=== PATIENT | female | born 1965 | race Caucasian/White ===

== ENCOUNTER → 2017-11-06 | Outpatient (CLI) | payer OTHER, SELFPAY ==
[~2017-11-06] MED LIST: ALBU90OI61 INH; Advil200 M1 PO; CITA20 PO; HYDR1TAB94; LEVSOD50 PO; OMEP20ER PO; OMEP40CA12 PO; OXYB5 PO; SOMA350 MG PO; TOLT4 PO
== END | disposition home or self-care (01) ==
LOC: OLS 16:40 → LAB SHORT 16:40
PROVIDERS: Nurse Practitioner Women's Health
DX: Z12.4 Encounter for screening for malignant neoplasm of cervix (principal); Z91.89 Other specified personal risk factors, not elsewhere classified
CPT/HCPCS: 87624; G0123

== ENCOUNTER 2018-07-29 07:04 | Day surgery (SDC) | payer OTHER ==
[~2018-07-29] VITALS: Ht 162.6 cm; Wt 108.0 kg
[~2018-07-29 07:04] MED LIST changes: +Omeprazole20 M1 PO; +PROGESTERONE200 MG PO; +SYNTHROID25 MCG PO
[2018-07-29] MEDS ORDERED: IBUP400 (08:19)
--- NOTE | 2018-07-29 08:26 | NUR ---
07/29/18 0826 Kendy Slater 1ST TWO IV ATTEMPTS BY RN'S WOULD NOT THREAD. THIRD IV ATTEMPT BY RN WAS A SUCCESSFUL START. PT TOLERATED PROCEDURE WITHOUT DIFFICULTY/
== END 2018-07-29 09:41 | disposition home or self-care (01) ==
LOC: ORSCSDS 07:04
PROVIDERS: Internal Medicine Gastroenterology
PROC: 0DJD8ZZ Inspection of Lower Intestinal Tract, Via Natural or Artificial Opening Endoscopic (ICD-10-PCS; principal; 2018-07-29 08:30)
DX: R19.4 Change in bowel habit (principal); K57.30 Diverticulosis of large intestine without perforation or abscess without bleeding; Z86.010 Personal history of colon polyps; Z80.0 Family history of malignant neoplasm of digestive organs; K21.9 Gastro-esophageal reflux disease without esophagitis; E03.9 Hypothyroidism, unspecified; E66.01 Morbid (severe) obesity due to excess calories; Z68.41 Body mass index [BMI] 40.0-44.9, adult; Z79.899 Other long term (current) drug therapy
CPT/HCPCS: J2250; J2405; J7120

== ENCOUNTER → 2018-12-24 | Outpatient (CLI) | payer OTHER ==
[~2018-12-24] MED LIST changes: +IBUP400
[2018-12-24 12:11] LABS: Source, Urine Catheter
[2018-12-24 12:27] LABS: Bilirubin, Urine Neg (Neg); Blood, Urine 1+ (Neg); Glucose Qualitative, Urine Neg (Neg); Ketones, Urine Neg (Neg); Leukocyte Esterase, Urine Neg (Neg); Nitrite, Urine Neg (Neg); Protein, Urine Neg (Neg); Specific Gravity, Urine 1.025 (1.003-1.022); Urobilinogen, Urine NORM (Normal)
[2018-12-24 12:34] LABS: Appearance, Urine Clear (Clear); Color, Urine Yellow (P-Yellow)
[2018-12-24 12:35] LABS: Bacteria Few /hpf; Squamous Epithelial Cells Few /hpf (Few); White Blood Cells, Urine 0-2 /hpf (0-5)
[2018-12-25 16:06] LABS: HPV 16 Negative (Negative); HPV 18 Negative (Negative); HPV OTHER HR TYPES Negative (Negative)
== END | disposition home or self-care (01) ==
LOC: LAB 12:09 → LAB SHORT 12:09
PROVIDERS: Nurse Practitioner Women's Health
DX: Z12.4 Encounter for screening for malignant neoplasm of cervix (principal); R39.89 Other symptoms and signs involving the genitourinary system; Z91.89 Other specified personal risk factors, not elsewhere classified
CPT/HCPCS: 81001; 87624; G0123

== ENCOUNTER → 2019-03-27 | Outpatient (CLI) | payer OTHER | END | disposition home or self-care (01) | LOC: PLD 13:43 → LAB SHORT 13:43 | DX: Q51.828 Other congenital malformations of cervix (principal); N85.00 Endometrial hyperplasia, unspecified; N95.0 Postmenopausal bleeding | CPT/HCPCS: 88305 ==

== ENCOUNTER → 2020-01-27 | Outpatient (CLI) | payer OTHER ==
[2020-01-27 16:56] LABS: BASOPHILS ABSOLUTE AUTO 0.04 K/mm3 (0.00-0.23); BASOPHILS PERCENT AUTO 1 % (0-2); EOSINOPHILS ABSOLUTE AUTO 0.12 K/mm3 (0.00-0.68); EOSINOPHILS PERCENT AUTO 2 % (0-6); Hematocrit 36.2 % (33.0-51.0); Hemoglobin 11.7 g/dL (11.5-16.0); IMMATURE GRAN ABSOLUTE AUTO 0.01 K/mm3 (0.00-0.10); IMMATURE GRAN PERCENT AUTO 0 % (0-1); LYMPHOCYTES ABSOLUTE AUTO 2.09 K/mm3 (0.84-5.20); LYMPHOCYTES PERCENT AUTO 34 % (21-46); MONOCYTES ABSOLUTE AUTO 0.38 K/mm3 (0.16-1.47); MONOCYTES PERCENT AUTO 6 % (4-13); Mean Corpuscular HGB 28.4 pg (26.0-34.0); Mean Corpuscular HGB Conc 32.3 g/dL (31.5-36.5); Mean Corpuscular Volume 88 fL (80-100); Mean Platelet Volume 9.2 fL (9.1-12.4); NEUTROPHILS ABSOLUTE AUTO 3.59 K/mm3 (1.96-9.15); NEUTROPHILS PERCENT AUTO 58 % (41-73); Platelet Count 305 K/mm3 (150-400); RDW Standard Deviation 41.3 fL (35.1-46.3); Red Blood Cell Count 4.12 M/mm3 (3.80-5.20); White Blood Cell Count 6.23 K/mm3 (4.00-11.30)
[2020-01-27 17:05] LABS: Albumin, Blood 3.6 g/dL (3.4-5.0); Albumin/Globulin Ratio 0.9 (0.8-1.8); Bilirubin, Total 0.5 mg/dL (0.1-1.0); Bun/Creatinine Ratio 14.7 (12.0-20.0); Calcium, Blood 8.8 mg/dL (8.5-10.1); Creatinine, Blood 1.02 mg/dL (0.40-1.00); Globulin, Blood 3.8 g/dL (2.2-4.0); Potassium, Blood 4.2 mmol/L (3.5-5.5); Total Protein, Blood 7.4 g/dL (6.4-8.2)
== END | disposition home or self-care (01) ==
LOC: LAB SHORT 16:51
PROVIDERS: Physician Assistant Medical
DX: R10.11 Right upper quadrant pain (principal)
CPT/HCPCS: 80053; 83690; 85025

== ENCOUNTER → 2020-05-15 | Outpatient (CLI) | payer OTHER | LOC: LAB SHORT 12:00 | DX: J06.9 Acute upper respiratory infection, unspecified (principal); J02.9 Acute pharyngitis, unspecified | CPT/HCPCS: 87081 ==

== ENCOUNTER 2021-05-11 13:15 | Emergency (ER) | payer OTHER ==
[~2021-05-11] VITALS: Ht 162.6 cm; Wt 111.1 kg
== END 2021-05-11 16:32 | disposition home or self-care (01) ==
LOC: ER 13:15
DX: S93.601A Unspecified sprain of right foot, initial encounter (principal); S80.11XA Contusion of right lower leg, initial encounter; W20.8XXA Other cause of strike by thrown, projected or falling object, initial encounter
CPT/HCPCS: 73610; 73630; 96372; 99283-25; J1885

== ENCOUNTER → 2022-09-12 | Outpatient (CLI) | payer OTHER ==
[2022-09-12 18:03] LABS: BASOPHILS ABSOLUTE AUTO 0.06 K/mm3 (0.00-0.23); BASOPHILS PERCENT AUTO 0 % (0-2); EOSINOPHILS ABSOLUTE AUTO 0.14 K/mm3 (0.00-0.68); EOSINOPHILS PERCENT AUTO 1 % (0-6); Hematocrit 38.4 % (33.0-51.0); Hemoglobin 12.9 g/dL (11.5-16.0); IMMATURE GRAN ABSOLUTE AUTO 0.06 K/mm3 (0.00-0.10); IMMATURE GRAN PERCENT AUTO 0 % (0-1); LYMPHOCYTES ABSOLUTE AUTO 2.85 K/mm3 (0.84-5.20); LYMPHOCYTES PERCENT AUTO 18 % (21-46); MONOCYTES ABSOLUTE AUTO 0.54 K/mm3 (0.16-1.47); MONOCYTES PERCENT AUTO 4 % (4-13); Mean Corpuscular HGB 29.1 pg (26.0-34.0); Mean Corpuscular HGB Conc 33.6 g/dL (31.5-36.5); Mean Corpuscular Volume 87 fL (80-100); Mean Platelet Volume 9.2 fL (9.1-12.4); NEUTROPHILS ABSOLUTE AUTO 11.97 K/mm3 (1.96-9.15); NEUTROPHILS PERCENT AUTO 77 % (41-73); Platelet Count 318 K/mm3 (150-400); RDW Coefficient Variation 13.5 % (11.7-14.2); RDW Standard Deviation 42.5 fL (35.1-46.3); Red Blood Cell Count 4.43 M/mm3 (3.80-5.20); White Blood Cell Count 15.62 K/mm3 (4.00-11.30)
[2022-09-12 18:12] LABS: Albumin, Blood 3.4 g/dL (3.4-5.0); Bilirubin, Total 0.2 mg/dL (0.1-1.0); Bun/Creatinine Ratio 21.4 (12.0-20.0); Calcium, Blood 8.7 mg/dL (8.5-10.1); Creatinine, Blood 1.03 mg/dL (0.40-1.00); Globulin, Blood 3.5 g/dL (2.2-4.0); Potassium, Blood 4.3 mmol/L (3.5-5.5); Total Protein, Blood 6.9 g/dL (6.4-8.2)
== END | disposition home or self-care (01) ==
LOC: LAB 17:55 → LAB SHORT 17:55
PROVIDERS: Physician Assistant
DX: R10.9 Unspecified abdominal pain (principal)
CPT/HCPCS: 80053; 82150; 83690; 85025

== ENCOUNTER → 2023-01-05 | Outpatient (CLI) | payer OTHER | END | disposition home or self-care (01) | LOC: LAB 10:45 | DX: Z11.59 Encounter for screening for other viral diseases (principal); E11.9 Type 2 diabetes mellitus without complications; E03.9 Hypothyroidism, unspecified ==

== ENCOUNTER → 2023-09-13 | Outpatient (CLI) | payer OTHER ==
[~2023-09-13] MED LIST changes: +ALBU90OI INH; +ANASTROZOLE1 M7; +ATOR20; +BENZ100A PO; +CADUET 5 MG; +CVS ALLERGY RL1 EAC1 PO; +CYCL10 PO; +HYCODAN 5 MG-1.55 ML PO; +IRON18 MG; +LEVSOD25 PO; +Lisinopril2.5 MG; +METF500; +OMEPRAZOLE PO; +ONDA4ODT PO; -Omeprazole20 M1 PO; +Prednisone10 MG PO; +STIOLTO RESPIMAT4 G1 INH; -SYNTHROID25 MCG PO; +Vitamin C100 M1
== END | disposition home or self-care (01) ==
LOC: LAB SHORT 18:51 → LAB 18:51
DX: N39.0 Urinary tract infection, site not specified (principal)
CPT/HCPCS: 87086

== ENCOUNTER 2024-05-29 09:02 | Day surgery (SDC) | payer OTHER ==
[~2024-05-29] VITALS: Ht 162.6 cm; Wt 113.1 kg
[~2024-05-29 09:02] MED LIST changes: +Lactated Ringer's 1,000 ML IV ONE
[2024-05-29] MEDS ORDERED: ALBU90OI (09:42)
[2024-05-29] MEDS ORDERED: CELEXA40 M1 (09:42)
[2024-05-29] MEDS ORDERED: BUTALB-ACETAMI1 EAC7 (09:42)
[2024-05-29] MEDS ORDERED: TERB250 (09:42)
[2024-05-29] MEDS ORDERED: ONDA4 (09:43)
[2024-05-29] MEDS ORDERED: ACET500 (09:43)
[2024-05-29] MEDS ORDERED: IBUP200 (09:43)
[2024-05-29] MEDS ORDERED: OMEP20ER (09:44)
[2024-05-29] MEDS ORDERED: XYZAL5 MG (09:44)
[2024-05-29] MEDS ORDERED: VITAMIN D31000 UNI1 (09:44)
[2024-05-29] MEDS ORDERED: MAGNESIUM OXID500 MG (09:45)
[2024-05-29] MEDS ORDERED: Lactated Ringer's 1,000 ML IV ONE (10:31)
[2024-05-29] MEDS ORDERED: propofoL 50 ML IV ONE (10:51)
[2024-05-29 12:00] VITALS: BP 102/74
== END 2024-05-29 12:04 | disposition home or self-care (01) ==
LOC: ORSCSDS 09:02
PROVIDERS: Internal Medicine Gastroenterology
PROC: 0DBK8ZX Excision of Ascending Colon, Via Natural or Artificial Opening Endoscopic, Diagnostic (ICD-10-PCS; principal; 2024-05-29 10:30)
DX: Z12.11 Encounter for screening for malignant neoplasm of colon (principal); D12.2 Benign neoplasm of ascending colon; K57.30 Diverticulosis of large intestine without perforation or abscess without bleeding; Z80.0 Family history of malignant neoplasm of digestive organs; Z86.0101 Personal history of adenomatous and serrated colon polyps; Z83.718 Family history of other colon polyps; E03.9 Hypothyroidism, unspecified; G47.33 Obstructive sleep apnea (adult) (pediatric); K21.9 Gastro-esophageal reflux disease without esophagitis; E66.01 Morbid (severe) obesity due to excess calories; Z68.41 Body mass index [BMI] 40.0-44.9, adult; Z79.899 Other long term (current) drug therapy
CPT/HCPCS: 82947; 88305; J2704; J7120

== ENCOUNTER → 2025-05-01 | Outpatient (CLI) | payer OTHER ==
[~2025-05-01] MED LIST changes: +ACET500; +ALBU90OI; +BUTALB-ACETAMI1 EAC7; +CELEXA40 M1; +IBUP200; -Lactated Ringer's 1,000 ML IV ONE; +MAGNESIUM OXID500 MG; +OMEP20ER; +ONDA4; +TERB250; +VITAMIN D31000 UNI1; +XYZAL5 MG
== END ==
LOC: LAB SHORT 15:10 → LAB 15:10
DX: E11.9 Type 2 diabetes mellitus without complications (principal)
CPT/HCPCS: 82043